=== PATIENT | male | born 1970 | race Caucasian/White ===

== ENCOUNTER → 2017-11-24 | Outpatient (CLI) | payer OTHER ==
[~2017-11-24] MED LIST: ABILIFY 5 MG TAB5 M1 PO; ACETAMINOPHEN-1 EAC1 PO; ADVIL LIQUI-GE200 MG PO; CARISOPRODOL 3350 MG PO; CELEBREX 200 M200 M1 PO; FLEXERIL PO; HYDROCODON-ACE1 EAC7 PO; IBUPROFEN 800800 M1 PO; IBUPROFEN200 M2 PO; KEFLEX500 MG PO; METFORMIN HCL500 MG PO; MOBIC15 MG PO; NAPROSYN500 MG PO; NEURONTIN 300300 M1 PO; NORCO 5-325 TA1 EACH PO; OMEPRAZOLE20 MG PO; PRILOSEC40 MG PO; PROTONIX40 M2 PO; RELAFEN750 MG PO; SLEEP-AID25 M1 PO; TYLENOL PM EX-1 EACH; TYLENOL PM EX-1 EACH PO; ULTRAM 50MG TAB50 MG PO; VOLTAREN GEL 1100 G2 TOP; ZANAFLEX4 MG PO; ZOLOFT; ZOLOFT100 MG PO; [UNRECOGNIZED DRUG - OTHER]
--- NOTE | 2017-12-01 07:32 | PAINCON ---
[address] [address] PAIN MANAGEMENT CONSULTATION Name: LUH PARSONS Room: [facility] Mian#: [id number] Admission: 11/24/17 Attend Phys: Bryson Waters Discharge: Date of : 66 Report #: [id number] THIS REPORT FOR: //name// CC: Hilario Macario DATE OF SERVICE: 11/24/2017 HISTORY OF PRESENT ILLNESS: The patient is a 47-year-old gentleman typically treated for lumbar radiculopathy, DJD, right knee. I took over his care in 09/2016. He had prior seen another health care provider and had had a number of epidural injections, typically a series of 3 twice a year. I have tried to use epidural injections with great restraint, last injection was in August (08/25/2017). The patient has a learning disability. He lives with his mother. She is his primary fence gate assembler. We had talked at length at last visit about trying to stretch out the time between epidural injections. He does have ongoing right lumbar radicular pain, bilateral neural foraminal narrowing at L5-S1 with recurrent radicular symptoms. Some DJD in the right knee. He is followed up with his orthopedic surgeon, Dr. Nieves, who has recommended Celebrex and conservative therapy. He tried Voltaren gel, which was not very efficacious. Dr. Nieves did give him a compound cream, which seems to be helping with the knee. He returns to the pain clinic today noting that the last injection afforded greater than 80% relief for a number of months, though pain is beginning to recur. Rates pain at 8 on a VAS. He did fall at "[employer]" remote control car show. He was with his mother. He said he slipped on some water that had spilled. Physical exam does show no ballottable edema in the right knee. In fact, the right knee does appear to be intact. Ongoing radicular pain with paresthesia down to the right leg. Positive straight leg raising on right with slight decreased right hip flexion, lower extremity extension strength. Again, we did review the aforementioned MRI showing bilateral lumbar spondylosis at L5-S1 with 8 mm anterolisthesis, compression of the bilateral L5 nerve roots bilaterally. PHYSICAL EXAMINATION: GENERAL: Shows a 6 feet 1 inch, 186 pounds gentleman, BMI is 24.7 kilograms per meter squared. VITAL SIGNS: Blood pressure 110/76, pulse 82, respirations 16. MUSCULOSKELETAL: Rises from chair using armrest, modestly antalgic gait favoring the right leg. Again, no ballottable edema in the right knee. Ligaments are intact. Positive straight leg raise on the right, [place] [address] PAIN MANAGEMENT CONSULTATION Name: LUH PARSONS Room: [facility] Mian#: [id number] Admission: 11/24/17 Attend Phys: Bryson Waters Discharge: Date of : 66 Report #: [id number] hip flexion, lower extremity extension strength. Diffuse tenderness across the low back. No discrete trigger points are noted. The patient denies myelopathic symptoms. ASSESSMENT: Symptomatic lumbar radiculopathy by clinical exam and history, positive neural tensioning symptoms, history of good relief following epidural injections typically at L4-L5. RECOMMENDATIONS: 1. Continue nonsteroidal anti-inflammatory medication. Continue range of motion activity. The patient has been riding a bicycle for physical therapy. Strongly encouraged helmet wearing with the bicycle. 2. We will seek authorization for epidural injection under fluoroscopy. <ELECTRONICALLY SIGNED> By: Pavel Macario DO 12/01/17 0732 1224 2126Pavel Macario DO /nt
== END ==
LOC: M.PC 01:35
DX: M54.16 Radiculopathy, lumbar region (principal); M17.11 Unilateral primary osteoarthritis, right knee

== ENCOUNTER → 2017-12-01 | Outpatient (CLI) | payer OTHER ==
--- NOTE | 2017-12-06 07:49 | PAINCON ---
[address] [address] PAIN MANAGEMENT CONSULTATION Name: LUH PARSONS [id number] Admission: 12/01/17 Attend Phys: Bryson Waters Discharge: Date of : 66 Report #: [id number] THIS REPORT FOR: //name// CC: Hilario Macario The patient is a 47-year-old gentleman long known to pain clinic for symptomatic lumbar radiculopathy, last seen in the pain clinic last week, diagnosed with recurrent lumbar radiculopathy. We sought authorization for repeat epidural injection under fluoroscopy. The patient notes pain continues in mid back, bilateral legs. We elected to repeat epidural injection under fluoroscopy today. ASSESSMENT: Symptomatic lumbar radiculopathy. PROCEDURE: Lumbar epidural injection under fluoroscopy. PROCEDURE NOTE: After both written and informed consent to include risk of spinal cord damage, increased pain, weakness and dural puncture, the patient was taken to the fluoroscopy suite, placed in the prone position. After sterile prep and drape, a skin wheal with lidocaine was raised. A 22-gauge epidural Tuohy needle was inserted in the midline at L3-L4 with good loss to resistance. Negative aspiration for cerebrospinal fluid or blood was noted. Then 1 mL of Omnipaque under biplanar fluoroscopy showed good spread within the epidural space. This was followed with 80 mg of triamcinolone plus 1 mL of 1.5% preservative-free Xylocaine, 0.5 mL Xylocaine was then injected to flush the needle; it was removed. The patient was monitored for an appropriate period of time and discharged in good and stable condition. <ELECTRONICALLY SIGNED> By: Pavel Macario DO 12/06/17 0749 1214 1301Pavel Macario DO /nt
== END ==
LOC: M.PC 01:44
DX: M54.16 Radiculopathy, lumbar region (principal)

== ENCOUNTER → 2018-05-26 | Outpatient (CLI) | payer OTHER ==
--- NOTE | 2018-06-08 16:41 | PAINCON ---
[address] [address] PAIN MANAGEMENT CONSULTATION Name: LUH PARSONS Room: [facility] KEYLA Pappas#: [id number] Admission: 05/26/18 Attend Phys: Tiffany Calhoun MD Discharge: Date of : 66 Report #: [id number] THIS REPORT FOR: //name// CC: Hilario Calhoun DATE OF SERVICE: 05/26/2018 FOLLOWUP HISTORY: The patient is a 48-year-old gentleman who has been followed in the pain clinic by Dr. Luh Macario. This is my first time visiting with the patient. He has a history of pain and discomfort involving his low back area. He has undergone epidural steroid injections. He has gleaned benefit from epidural steroid injections in the past. He has had no complications from their use. He rates his pain as a 6-7. Does take Voltaren gel, uses meloxicam, Tylenol and pain creams p.r.n. to help with his pain. Pain is worse with activity, walking, sitting, standing. He finds that medications could be helpful. He has a history of degenerative joint disease. It involves his right knee as well. He denies any new trauma. At this juncture. Gleaned greater than 50% relief after epidural steroid injections. He does have an MRI, which showed multilevel degenerative disk problems in his back. He has bilateral spondylosis at L5 with spondylolisthesis of L5 on S1 causing [id number] bilateral neural foraminal stenosis at that level. His mother states that his pain has risen to the level again that he is complaining quite a bit. He feels that it is reasonable for him to undergo another epidural steroid injection. The patient has been counseled on the possibility of a spinal cord stimulator by Dr. Macario. Unfortunately, Dr. Macario was not sure that the patient's level of psychological maturity would phu well for him to use that device. ALLERGIES: RITALIN, DILANTIN, FENTANYL, GABAPENTIN. CURRENT MEDICATIONS: Extra strength Tylenol, Celebrex 200 mg, Voltaren gel b.i.d., meloxicam 15 mg, Protonix 40 mg, Zoloft 100 mg. PAST MEDICAL HISTORY: 1. Lumbar radiculopathy, bilateral spondylolysis of L5 with spondylolisthesis of L5 on S1. 2. Psychologically developmentally delayed. PAST SURGICAL HISTORY: Tonsillectomy. SOCIAL HISTORY: The patient lives with his mother. LABORATORY DATA: No new laboratory values are available. MRI dated 05/16/2012 reveals bilateral spondylolysis at L5 and grade 1 spondylolisthesis at L5-S1. There is unchanged, moderately severe bilateral neural foraminal stenosis at L5-S1. Has been improvement in a small posterior central disk protrusion and [facility] [address] [place] [address] PAIN MANAGEMENT CONSULTATION Name: LUH PARSONS Room: [facility] KEYLA Pappas#: [id number] Admission: 05/26/18 Attend Phys: Tiffany Calhoun MD Discharge: Date of : 66 Report #: [id number] annular tear at L4-L5. PAIN CLINIC ASSESSMENT: 1. History of osteoarthritic changes in the lower portion of the patient's back. 2. Height 6 feet 1 inch. Weight 181 pounds, BMI is 24. 3. Vital signs: Blood pressure 144/78, heart rate 85, respiratory rate 16, room air saturation is 95%, temperature 98.1. 4. Pain score 6-7/10. 5. Fall risk. The patient has not fallen in the last 3 months. 6. Blood thinner. The patient is not on a blood thinning medication. 7. Hypertension. The patient is not being treated for hypertension. 8. Opioid therapy. The patient is not on opioid regimen. 9. Risk assessment tool. 10. Functional assessment tool. 11. Recreational drug use. The patient denies use of recreational drugs. 12. Tobacco: The patient does not smoke. 13. Alcohol: The patient denies use of alcoholic beverages. PHYSICAL EXAMINATION: GENERAL: The patient is a well-developed, well-nourished white male. Appears his stated age. He is alert and oriented x 3. His affect is appropriate. He is somewhat developmentally delayed. Interaction about that of a 9th, 10th or eleventh greater. HEENT: Normocephalic, atraumatic. Extraocular eye muscles intact. Sclerae nonicteric. Mucous membranes are moist. NECK: Without adenopathy or JVD. HEART: Regular rate. S1, S2. CHEST: Clear to auscultation without rhonchi or rales. ABDOMEN: Nontender. EXTREMITIES: Upper extremity muscle strength is judged to be 5/5 for the major muscle groups. Lower extremity, the patient has pain and discomfort in the L5-S1 dermatomal distribution with pain radiating down into his lumbar area, more problematic in the right area at this juncture. Positive straight leg raise. IMPRESSION: 1. Lumbar radiculopathy with lumbar radicular symptoms. 2. Bilateral spondylolysis of L5 with spondylolisthesis of L5 on S1. 3. Psychologically developmentally delayed. RECOMMENDATIONS: We discussed treatment options with the patient and his mother. He will return to the pain clinic in the near future and undergo an epidural steroid injection. Risks and benefits of the procedure were discussed. The patient and his mother expressed that they had this procedure in the past and had no real concerns at this juncture. He will [place] [address] PAIN MANAGEMENT CONSULTATION Name: LUH PARSONS Carlene Room: [facility]#: [id number] Admission: 05/26/18 Attend Phys: Tiffany Calhoun MD Discharge: Date of : 66 Report #: [id number] then undergo an epidural steroid injection to help quell the pain and discomfort, which he is experiencing. We would like to thank you for letting us participate in his care. We hope he continues to improve. <ELECTRONICALLY SIGNED> By: Tiffany Calhoun MD 06/08/18 1641 1616 2154N. Benny Calhoun MD /nt
== END ==
LOC: M.PC 05-24 11:20
DX: M47.26 Other spondylosis with radiculopathy, lumbar region (principal); M43.17 Spondylolisthesis, lumbosacral region

== ENCOUNTER → 2018-06-02 | Outpatient (CLI) | payer OTHER ==
--- NOTE | 2018-06-08 16:41 | PAINCON ---
[address] [address] PAIN MANAGEMENT CONSULTATION Name: LUH PARSONS [id number] Admission: 06/02/18 Attend Phys: Tiffany Calhoun MD Discharge: Date of : 66 Report #: [id number] THIS REPORT FOR: //name// CC: Hilario Calhoun DATE OF SERVICE: 06/02/2018 PRIMARY CARE PHYSICIAN: Hilario Lainez MD FOLLOWUP COMPLAINT: Back and leg pain. HISTORY OF PRESENT ILLNESS: The patient is a 48-year-old gentleman who has been seen in the Pain Clinic and followed by Dr. Luh Macario. This is my first visit with the patient. He has a history of lumbar radiculopathy. He has undergone epidural steroid injections in the past and gleaned benefits from these. He was seen at the last visit. He has returned today in follow up with a desire to undergo a lumbar epidural steroid injection. He is having pain that is radiating down his back and into the right leg in the L4-L5 distribution. Injections in this area had been helpful in the past. His mother is present and corroborates his story. The patient has not had trauma. He reports that after each injection he notes bilateral improvement in his low back pain. ALLERGIES: METHYLPHENIDATE (RITALIN), DILANTIN, FENTANYL, GABAPENTIN. CURRENT MEDICATIONS: Tylenol Extra Strength, Celebrex 200 mg, Voltaren b.i.d. gel, Meloxicam 15 mg, Protonix 40 mg, Zoloft 100 mg. PAIN CLINIC ASSESSMENT: 1. The patient is not being followed for osteoarthritis or rheumatoid arthritis. 2. Height 6 feet 1 inch, weight 181 pounds, BMI is 24. 3. Vital signs: Blood pressure 144/78, heart rate 85, respiratory rate 16, room air saturation 95%, temperature 98.1. 4. Pain 6-10. 5. Fall risk. The patient has not fallen in the last 3 months. 6. Blood thinner. The patient is not on a blood thinning medication. 7. Hypertension. The patient is not being treated for hypertension. 8. Opioid therapy. The patient is not on an opioid regimen. 9. Risk assessment tool. 10. Functional assessment tool. 11. Recreational drug use. The patient denies use of recreational drugs. 12. Tobacco: The patient does not smoke. 13. Alcohol: The patient denies use of alcoholic beverages. PHYSICAL EXAMINATION: [place] [address] PAIN MANAGEMENT CONSULTATION Name: LUH PARSONS Carlene Room: [facility]#: [id number] Admission: 06/02/18 Attend Phys: Tiffany Calhoun MD Discharge: Date of : 66 Report #: [id number] GENERAL: The patient is a well-developed white male, appears his stated age. He is alert and oriented x 3. His mental status is somewhat diminished. Seems to be of approximately that of a 9th, 10th, or 11th grader. HEENT: Normocephalic, atraumatic. Extraocular eye muscles intact. Sclerae nonicteric. Mucous membranes are moist. CHEST: Clear to auscultation. HEART: Regular rate. ABDOMEN: Nontender. EXTREMITIES: Upper extremity muscle strength is judged to be 5/5 for the major muscle groups without neurologic deficits. The patient without significant scoliosis, kyphosis or lordosis. Low back pain, the patient's pain is radiating down the buttocks area and to the right anterior portion of his leg in the L4-L5 distribution. Muscle strength is judged to be 5/5 on the left leg. Approximately 5-/5 on the right leg secondary to pain. Edgar sign is negative. IMPRESSION: Lumbar radicular pain involving the L4-L5 distribution today. PAST MEDICAL HISTORY: Stomach problems, GERD, emotional problems. RECOMMENDATIONS: We discussed treatment options with the patient. We have discussed this with him and his mother in the last visit. Possible complications of the procedure were again reviewed. They include but are not limited to infection, increased muscle soreness, headache, bleeding, paralysis, worsening of pain, spinal headache. He elects to proceed. PROCEDURE NOTE: The patient was taken to the procedure area. He was assisted in getting on the examination table. His back was sterilely prepped with a chlorhexidine solution. Fluoroscopy using anterior, posterior as well as lateral visualization were performed. After appropriate placement, the L4-L5 area was sterilely prepped. A 17-gauge Tuohy with loss of resistance technique using a midline approach was performed. A total of 80 mg Depo-Medrol, 40 mg triamcinolone and 2 mL of 0.25% bupivacaine was injected. The patient tolerated the procedure well. There were no complications. He remained in the Pain Clinic for an appropriate amount of time. He will follow up in the future as needed. We would like to thank you for letting us participate in his care. We hope he continues to improve. <ELECTRONICALLY SIGNED> By: Tiffany Calhoun MD 06/08/18 1641 1601 0217N. Benny Calhoun MD /PMT
== END | disposition home or self-care (01) ==
LOC: M.PC 03:24
DX: M54.16 Radiculopathy, lumbar region (principal); Z88.8 Allergy status to other drugs, medicaments and biological substances; Z79.899 Other long term (current) drug therapy; I10 Essential (primary) hypertension; K21.9 Gastro-esophageal reflux disease without esophagitis

== ENCOUNTER → 2018-07-14 | Outpatient (CLI) | payer OTHER ==
--- NOTE | 2018-08-24 15:56 | PAINCON ---
[address] [address] PAIN MANAGEMENT CONSULTATION Name: LUH PARSONS Room: [facility] Mian#: [id number] Admission: 07/14/18 Attend Phys: Tiffany Calhoun MD Discharge: Date of : 66 Report #: [id number] THIS REPORT FOR: //name// CC: Hilario Calhoun DATE OF SERVICE: 07/14/2018 CHIEF COMPLAINT: Low back pain. This is radiating down into the right leg to the knee. FOLLOWUP HISTORY: The patient is a 48-year-old gentleman who has been seen in the pain clinic. He has a history of lumbar radiculopathy. He has undergone epidural steroid injections in the past and gleaned benefit from those. He has returned today indicating that his pain has returned. He is having pain and discomfort that radiates down into his right leg to the level of knee. He rates his pain as a 7/10 at this juncture. Denies any new bowel or bladder dysfunction. The patient continues to be helpful to those around him. He has helped some move items which were probably more/heavier than he should have. He has returned today for an injection. He did note improvement in his back and leg pain as a result of the last injection without any untoward complications. ALLERGIES: RITALIN, DILAUDID, FENTANYL, GABAPENTIN. CURRENT MEDICATIONS: Extra strength Tylenol, Celebrex 200 mg, Voltaren gel 1%, Meloxicam 15 mg, Protonix 40 mg, Zoloft 100 mg, PAIN CLINIC ASSESSMENT/PQRS: 1. The patient is not being treated for osteoarthritis or rheumatoid arthritis. 2. Height 6 feet 1 inch, weight 183. BMI is 24. 3. Vital Signs: Blood pressure 120/73, heart rate 71, respiratory rate 16, room air saturation is 97%, temperature 97.6. 4. Pain intensity 7/10. 5. Fall risk. The patient has not fallen in the last 3 months. 6. Blood thinner. The patient is not on a blood thinning medication. 7. Hypertension. The patient is not being treated for hypertension. 8. Opioid therapy greater than 6 weeks. The patient is not on an opioid regimen. 9. Risk assessment tool, low for opioid use. 10. Functional assessment tool. 11. Recreational drug use. The patient denies recreational drugs. 12. Tobacco: The patient has not smoked. 13. Alcohol: The patient denies use of alcoholic beverages. PHYSICAL EXAMINATION: GENERAL: The patient is a well-developed, well-nour[place] [address] PAIN MANAGEMENT CONSULTATION Name: LUH PARSONS Room: [facility]#: [id number] Admission: 07/14/18 Attend Phys: Tiffany Calhoun MD Discharge: Date of : 66 Report #: [id number] his stated age. He is alert and oriented x 3. His mental status is somewhat diminished. He responds had about the level of the ninth, 10th, or eleventh grader. HEENT: Normocephalic, atraumatic. Extraocular eye muscles intact. Sclerae nonicteric. Mucous membranes are moist. CHEST: Clear to auscultation. HEART: Regular rate. S1, S2. ABDOMEN: Nontender. Bowel sounds present. EXTREMITIES: Upper extremity muscle strength judged to be 5/5 for the major muscle groups in the upper extremity. The patient is without scoliosis, kyphosis or lordosis. Low back pain. The patient's pain is radiating down to the buttocks and into the right anterior portion of his leg in the L4-L5 distribution. Muscle strength is judged to be 5/5 for the major muscle groups. The patient notes pain strength of approximately 5-/5 for the right leg. Edgar's sign is negative. IMPRESSION: 1. Lumbar radiculopathy involving the L4-L5 distribution. 2. Stomach problems. 3. Gastroesophageal reflux disease. 4. Emotional problems. RECOMMENDATIONS: We discussed treatment options with the patient and his mother. At this juncture, he and she both feel that another injection would be beneficial. He has gleaned benefits from those in the past. He has had no complications. Continues to have pain and discomfort in the right leg with some weakness and numbness. No change in bowel or bladder function. We reviewed the possible complication with the patient and his mother. They include but are not limited to infection, increased muscle soreness, headache, bleeding, worsening of pain, paralysis and the patient elects to proceed. PROCEDURE NOTE: The patient was taken to the procedure area. He was assisted in getting on the examination table. His back was sterilely prepped with a Betadine solution. Fluoroscopy using anterior, posterior as well as lateral viewing were used. A pillow had been placed under his abdomen to improve positioning. A 25-gauge needle was then advanced into the area of the right L4-L5 dermatomal area. After appropriate placement, a 17-gauge Tuohy with loss of resistance technique using a right paracentral approach was undertaken. A total of 80 mg Depo-Medrol, 40 mg triamcinolone and 2 mL of 0.25% bupivacaine was injected. Total of 8 mL fluoroscopy time was used. The patient tolerated the procedure well. He remained in the pain clinic for an appropriate amount of time. He will follow up in the future as needed. [facility] [address] [place] [address] PAIN MANAGEMENT CONSULTATION Name: LUH PARSONS Room: [facility]#: [id number] Admission: 07/14/18 Attend Phys: Tiffany Calhoun MD Discharge: Date of : 66 Report #: [id number] We would like to thank you for letting us participate in his care. We hope he continues to improve. <ELECTRONICALLY SIGNED> By: Tiffany Calhoun MD 08/24/18 1556 1241 1500N. Benny Calhoun MD /nt
== END | disposition home or self-care (01) ==
LOC: M.PC 04:52
DX: M54.16 Radiculopathy, lumbar region (principal); K21.9 Gastro-esophageal reflux disease without esophagitis; M19.90 Unspecified osteoarthritis, unspecified site; I10 Essential (primary) hypertension; Z98.890 Other specified postprocedural states; Z88.8 Allergy status to other drugs, medicaments and biological substances

== ENCOUNTER 2018-11-06 09:56 | Emergency (ER) | payer OTHER ==
[~2018-11-06] VITALS: Ht 182.9 cm; Wt 83.9 kg
[2018-11-06] MEDS ORDERED: CELEBREX 200 M200 M1 PO (10:13)
[2018-11-06] MEDS ORDERED: JOINT HEALTH T1 EACH PO (10:13)
[2018-11-06] MEDS ORDERED: GLUCOSAMINE HC500 MG PO (10:15)
[2018-11-06] MEDS ORDERED: CENTRUM SILVER1 EAC2 PO (10:15)
[2018-11-06 10:35] LABS: ABSOLUTE LYMPHOCYTES 1.1 thou/uL (0.8-5.3); ABSOLUTE MONOCYTES 0.6 thou/uL (0.0-1.2); BASOPHILS 0.5 %; EOSINOPHILS 0.3 %; HEMOGLOBIN 15.3 gm/dL (14.0-18.0); LYMPHOCYTES 12.9 %; MCH 28.5 pg (26.0-34.0); MCHC 33.9 g/dL (28.0-37.0); MCV 84.1 fL (80.0-100.0); MONOCYTES 6.4 %; MPV 8.5 fl. (7.2-11.1); NUCLEATED RBCS 0 /100WBC; PLATELET COUNT* 214 thou/uL (150-400); POLYS 79.9 %; RBC 5.36 mil/uL (4.50-6.00); RDW-CV 13.4 % (10.5-14.5); WBC 8.8 thou/uL (4.0-11.0)
[2018-11-06 10:41] LABS: URINE BLOOD NEGATIVE (Negative); URINE CLARITY CLEAR; URINE COLOR YELLOW; URINE GLUCOSE-RANDOM NEGATIVE (Negative); URINE KETONES TRACE (Negative); URINE LEUKOCYTES-REFLEX NEGATIVE (Negative); URINE NITRITE-REFLEX NEGATIVE (Negative); URINE PROTEIN NEGATIVE (Negative); URINE SPECIFIC GRAVITY 1.025 (1.005-1.030); URINE UROBILINOGEN 0.2 E.U./dl (0.2-1.0)
[2018-11-06 10:44] LABS: ANION GAP 9 mmol/L (7-16); APTT 26.7 Seconds (25.0-31.3); BUN 23 mg/dL (7-18); CALCIUM 9.3 mg/dL (8.5-10.1); CHLORIDE 103 mmol/L (98-107); CO2 26 mmol/L (21-32); CREATININE 1.2 mg/dL (0.6-1.3); GLUCOSE 104 mg/dL (70-99); INR 1.1; POTASSIUM 3.6 mmol/L (3.5-5.1); SODIUM 138 mmol/L (136-145)
[2018-11-06 10:45] LABS: ICTOTEST (BILI CONFIRMATORY) Negative (Negative); URINE BILIRUBIN 1+ (Negative)
[2018-11-06 10:55] LABS: ALBUMIN 4.1 g/dL (3.4-5.0); ALKALINE PHOSPHATASE 114 U/L (46-116); NT-PRO BRAIN NAT PEPTIDE 27 pg/mL (<300); SGOT 20 U/L (15-37); SGPT 31 U/L (30-65); TOTAL BILIRUBIN 0.7 mg/dL (<0.1-1.0); TOTAL PROTEIN 7.5 g/dL (6.4-8.2); TROPONIN-I LEVEL <0.06 ng/mL (<0.06)
[2018-11-06 11:58] VITALS: BP 127/75
--- NOTE | 2018-11-07 10:07 | EKG ---
[place] [address] ELECTROCARDIOGRAM REPORT Name: LUH PARSONS [id number] Admission: 11/06/18 Attend Phys: Discharge: 11/06/18 Date of : 66 Report #: [id number] THIS REPORT FOR: //name// [facility] ED Test Date: 2018-11-06 Test Time: 10:19:14 Pat Name: LUH PARSONS Department: Room: Gender: M [employer] Mechanic: CHRISSY : 1970 Requested By: Jorden Mcintosh Order Number: [id number] MD: Kurt Santos Measurements Intervals Garibaldi Rate: 77 P: 74 SC: 130 QRS: 20 QRSD: 94 T: 56 QT: 391 QTc: 443 Interpretive Statements Sinus rhythm Compared to ECG 05/14/2013 13:35:41 Sinus arrhythmia no longer present Electronically Signed On 11-07-2018 10:07:06 [employer] by Kurt Santos [email or web address] <ELECTRONICALLY SIGNED> By: Kurt Santos MD, [facility] 11/07/18 1007 1019 1019 Kurt Santos MD, FACC /EPI
== END 2018-11-06 11:58 | disposition home or self-care (01) ==
LOC: M.ERS 09:56
PROVIDERS: Family Medicine
DX: R42 Dizziness and giddiness (principal); F32.9 Major depressive disorder, single episode, unspecified; Z88.4 Allergy status to anesthetic agent; Z88.8 Allergy status to other drugs, medicaments and biological substances; Z90.89 Acquired absence of other organs

== ENCOUNTER → 2018-12-29 | Outpatient (CLI) | payer OTHER ==
[~2018-12-29] MED LIST changes: +CENTRUM SILVER1 EAC2 PO; +GLUCOSAMINE HC500 MG PO; +JOINT HEALTH T1 EACH PO; +TRIAMCINOLONE A80 G2 TOP
--- NOTE | ~2018-12-29 | PAINCON ---
[address] [address] PAIN MANAGEMENT CONSULTATION Name: LUH PARSONS Room: [facility] Mian#: [id number] Admission: 12/29/18 Attend Phys: Tiffany Calhoun MD Discharge: Date of : 66 Report #: [id number] THIS REPORT FOR: //name// CC: Hilario Calhoun DATE OF SERVICE: 12/29/2018 CHIEF COMPLAINT: Here for medication renewal. FOLLOWUP HISTORY: The patient is a 48-year-old gentleman who has been followed in the Pain Clinic. He has a history of chronic low back pain. Has been experiencing pain over the last few months that have continues to radiate down into his left leg. Also had an episode of vertigo in October. He went to the Emergency Room. No significant findings were found. He has undergone epidural steroid injections in the past. He has gleaned benefits from those. He rates his pain today as a 6/10. He finds that meloxicam is helpful. Has used Voltaren gel on his upper extremities when he has been having pain and discomfort. Notes that walking, sitting and standing have increased his discomfort. Finds these medications are beneficial. He is experiencing pain that continues to radiate down into his right leg. Denies any bowel or bladder dysfunction. ALLERGIES: RITALIN, DILAUDID, FENTANYL, GABAPENTIN. CURRENT MEDICATIONS: Extra Strength Tylenol, Celebrex 200 mg, Voltaren gel 1%, meloxicam 15 mg, Protonix 40 mg, Zoloft 100 mg. PAIN CLINIC ASSESSMENT AND PQRS: 1. The patient is not being treated for osteoarthritis or rheumatoid arthritis. 2. Height 6 feet 1 inch, weight 182 pounds, BMI is 24.5. 3. Blood pressure 125/83, heart rate 69, respiratory rate 16, room air saturation 96% and temperature 97.8. 4. Pain intensity 6-8/10. 5. Fall history: The patient has not fallen in the last 3 months. 6. Blood thinner. The patient is not on a blood thinning medication. 7. Hypertension. The patient is not being treated for hypertension. 8. Opioids greater than 6 weeks. The patient is not on an opioid medication regimen. 9. Risk assessment tool, low for opioid use. 10. Functional assessment tool. 11. Recreational drug use. The patient denies use of recreational drugs. 12. Tobacco: The patient does not smoke. 13. Alcohol: The patient denies use of alcoholic beverages. PHYSICAL EXAMINATION: [place] [address] PAIN MANAGEMENT CONSULTATION Name: JAQUELINELUH Carlene Room: [facility]#: [id number] Admission: 12/29/18 Attend Phys: Tiffany Calhoun MD Discharge: Date of : 66 Report #: [id number] GENERAL: The patient is a well-developed, well-nourished white male. Appears his stated age. He is alert and oriented x 3. Mental status is somewhat diminished. Seems to be that of a night or 10/11th grade person. His mother is present. HEENT: Normocephalic, atraumatic. Extraocular eye muscles intact. Sclerae nonicteric. Mucous membranes are moist. NECK: Without adenopathy. CHEST: Clear to auscultation. ABDOMEN: Nontender. EXTREMITIES: Upper extremity muscle strength is judged to be 5/5 for the major muscle groups in the upper extremity. The patient without lordosis, kyphosis or scoliosis. Has low back pain. His pain is radiating down the L4-L5 dermatomal distribution. Notes that there is some weakness in the right leg. Slight antalgic movement. Positive straight leg raise. IMPRESSION: 1. Lumbar radiculopathy involving the L4-L5 dermatomal distribution on the right. 2. Stomach problems. 3. Gastroesophageal reflux. 4. Emotional problems. RECOMMENDATIONS: We discussed treatment options with the patient and his mother. At this juncture, he will return to the pain clinic after his insurance company gives the okay. At that time, he will then undergo an epidural steroid injection to help decrease his pain and discomfort. He has gleaned benefit from those treatments in the past. He would like to undergo another one. His mother is in agreement. No scripts are necessary. The patient has a script for meloxicam at this juncture and Voltaren gel. We would like to thank you for letting us participate in his care. He will undergo an epidural steroid injection when he returns to the pain clinic. By: [id number]. Benny Calhoun MD /JOE
== END ==
LOC: M.PC 04:49
DX: M54.16 Radiculopathy, lumbar region (principal); K21.9 Gastro-esophageal reflux disease without esophagitis; K92.9 Disease of digestive system, unspecified; F98.9 Unspecified behavioral and emotional disorders with onset usually occurring in childhood and adolescence; Z79.899 Other long term (current) drug therapy

== ENCOUNTER → 2019-01-05 | Outpatient (CLI) | payer OTHER ==
[~2019-01-05] MED LIST changes: +TRAMADOL 50 MG50 MG PO
--- NOTE | ~2019-01-05 | PAINCON ---
[address] [address] PAIN MANAGEMENT CONSULTATION Name: LUH PARSONS [id number] Admission: 01/05/19 Attend Phys: Tiffany Calhoun MD Discharge: Date of : 66 Report #: [id number] THIS REPORT FOR: //name// CC: Hilario Calhoun DATE OF SERVICE: 01/12/2019 CHIEF COMPLAINT: Here for another epidural injection. The pain is going down into my leg. FOLLOWUP HISTORY: The patient is a 48-year-old gentleman who has been followed in the pain clinic. He has pain and discomfort in the lower portion of his back. He has been experiencing pain that has been running down the posterior portion of his leg. He has undergone epidural steroid injections in the low back area and gleaned benefits from these. Right side is most problematic. He denies any bowel or bladder dysfunction. He has returned today with a desire to undergo an epidural injection to help quell his pain and discomfort. His pain is rated 6-8 at this juncture. Continues to use Meloxicam. ALLERGIES: RITALIN, DILAUDID, FENTANYL, GABAPENTIN. CURRENT MEDICATIONS: Extra strength Tylenol, Celebrex 200 mg, Voltaren gel 1%, Meloxicam 15 mg, Protonix 40 mg, and Zoloft 100 mg. PAIN CLINIC ASSESSMENT/PQRS: 1. The patient is not being treated for rheumatoid arthritis. He is not being treated for osteoarthritis. 2. Height 6 feet 1 inch, weight 182 pounds, BMI 24.9. 3. Vital signs: Blood pressure 106/67, heart rate 88, respiratory rate 16, room air saturation is 97%, temperature 98.2. 4. Pain intensity 6-8/10. 5. Fall history: The patient has not fallen in the last 3 months. 6. Blood thinner. The patient is not on a blood thinning medication. 7. Hypertension. The patient is not being treated for hypertension. 8. Opioids greater than 6 weeks. The patient is not an opioid regimen. 9. Risk functional assessment tool, low for opioid use. 10. Functional assessment tool. 11. Recreational drug use. The patient denies use of recreational drugs. 12. Tobacco: The patient denies use of tobacco. 13. Alcohol: The patient denies use of alcoholic beverages. PHYSICAL EXAMINATION: GENERAL: The patient is a very pleasant 48-year-old gentleman who has been followed in the pain clinic because of lumbar radiculopathy. He is alert and oriented. His mother is present. His mental status about a 10th, 11th [place] [address] PAIN MANAGEMENT CONSULTATION Name: LUH PARSONS Room: [facility]#: [id number] Admission: 01/05/19 Attend Phys: Tiffany Calhoun MD Discharge: Date of : 66 Report #: [id number]. HEENT: Normocephalic, atraumatic. Extraocular muscles intact. Sclerae nonicteric. Mucous membranes are moist. NECK: Without adenopathy or JVD. CHEST: Clear to auscultation. ABDOMEN: Nontender. Bowel sounds present. HEART: Regular rate. EXTREMITIES: Upper extremity muscle strength judged to be 5/5 for the major muscle groups in the upper extremity. The patient has pain and discomfort in lower portion of his back with pain radiating down the L4-L5 dermatomal distribution on the right. Has a positive straight leg raise on the right. Slight antalgic gait with complaint of pain down to the right L4-L5 dermatomal distribution. IMPRESSION: 1. Lumbar radiculopathy involving L4-L5 dermatomal distribution on the right. 2. Stomach problems. 3. Gastroesophageal reflux. 4. Emotional problems. RECOMMENDATIONS: We discussed treatment options with the patient and his mother. Risks and benefits of the procedure, which could include but are not limited to infection, worsening of pain, no improvement in pain, nerve damage, increased muscle soreness or spinal headache. The patient elects to proceed. PROCEDURE NOTE: The patient was taken to the procedure area. He was assisted in getting on the examination table. His back was sterilely prepped with a Betadine solution. A pillow had been placed under his abdomen to bolster and improve positioning. Fluoroscopy using anterior posteriorly as well as lateral viewing were implemented. The patient's back was sterilely prepped with a Betadine solution. At the right L4-L5 area of 0.25% bupivacaine was infiltrated using a 25-gauge needle. A 17-gauge Tuohy was then advanced in this area after it had been anesthetized. A 0.25% bupivacaine was infiltrated as well. Aspiration was negative. A total of 80 mg Depo-Medrol, 40 mg triamcinolone and 2 mL of 0.25% bupivacaine was injected. The patient tolerated the procedure well. There were no complications. Approximately 5 seconds fluoroscopy time was used. The patient was then taken to the recovery room where he remained for an appropriate amount of time. He will follow up in the future as needed. We would like to thank you for letting us participate in his care. We hope he continues to improve. By: [id number]. Benny Calhoun MD /nt
== END | disposition home or self-care (01) ==
LOC: M.PC 00:45
DX: M54.16 Radiculopathy, lumbar region (principal); G89.29 Other chronic pain; K21.9 Gastro-esophageal reflux disease without esophagitis; K92.9 Disease of digestive system, unspecified; F98.9 Unspecified behavioral and emotional disorders with onset usually occurring in childhood and adolescence; Z88.8 Allergy status to other drugs, medicaments and biological substances; Z98.890 Other specified postprocedural states; Z79.899 Other long term (current) drug therapy

== ENCOUNTER 2019-04-01 23:17 | Emergency (ER) | payer OTHER ==
[~2019-04-01] VITALS: Ht 172.7 cm; Wt 72.6 kg
[2019-04-01] MEDS ORDERED: MUSCLE (23:38)
[2019-04-02 00:20] LABS: ABSOLUTE LYMPHOCYTES 1.2 thou/uL (0.8-5.3); MPV 8.4 fl. (7.2-11.1); PLATELET COUNT* 187 thou/uL (150-400)
[2019-04-02 00:22] LABS: ABSOLUTE EOSINOPHILS 0.1 thou/uL (0.0-0.7); ABSOLUTE MONOCYTES 0.5 thou/uL (0.0-1.2); ABSOLUTE NEUTROPHILS 6.5 thou/uL (1.6-8.1); BASOPHILS 0.5 %; HEMATOCRIT 39.4 % (42.0-52.0); HEMOGLOBIN 13.5 gm/dL (14.0-18.0); LYMPHOCYTES 14.7 %; MCH 28.3 pg (26.0-34.0); MCHC 34.3 g/dL (28.0-37.0); MCV 82.4 fL (80.0-100.0); NUCLEATED RBCS 0 /100WBC; POLYS 77.8 %; RBC 4.78 mil/uL (4.50-6.00); RDW-CV 13.7 % (10.5-14.5); WBC 8.3 thou/uL (4.0-11.0)
[2019-04-02 00:28] LABS: CALCIUM 9.2 mg/dL (8.5-10.1); CREATININE 1.1 mg/dL (0.6-1.3); POTASSIUM 4.2 mmol/L (3.5-5.1)
[2019-04-02 00:33] LABS: ALBUMIN 3.8 g/dL (3.4-5.0); TOTAL BILIRUBIN 0.4 mg/dL (<0.1-1.0); TOTAL PROTEIN 6.8 g/dL (6.4-8.2)
[2019-04-02] MEDS ORDERED: BACTRIM DS TAB1 EACH PO (01:18)
[2019-04-02 01:43] VITALS: BP 135/89
== END 2019-04-02 01:44 | disposition home or self-care (01) ==
LOC: M.ERS 23:17
PROVIDERS: Family Medicine
DX: K61.1 Rectal abscess (principal); Z88.4 Allergy status to anesthetic agent; Z88.8 Allergy status to other drugs, medicaments and biological substances; F32.9 Major depressive disorder, single episode, unspecified; Z90.89 Acquired absence of other organs

== ENCOUNTER → 2019-05-11 | Outpatient (CLI) | payer OTHER ==
[~2019-05-11] MED LIST changes: +BACTRIM DS TAB1 EACH PO; +MUSCLE
--- NOTE | ~2019-05-11 | PAINCON ---
[address] [address] PAIN MANAGEMENT CONSULTATION Name: LUH PARSONS Room: [facility] Mian#: [id number] Admission: 05/11/19 Attend Phys: Tiffany Calhoun MD Discharge: Date of : 66 Report #: [id number] THIS REPORT FOR: //name// CC: Curtis Calhoun DATE OF SERVICE: 05/11/2019 CHIEF COMPLAINT: Back and leg pain. The patient has been found to have a perirectal abscess. HISTORY: The patient is a very pleasant 49-year-old gentleman who has been followed in the pain clinic because of chronic pain. He has had pain in the lower portion of his back, which radiates down into his legs. He has had numerous injections in the past because of the pain. He generally receives good pain relief. He has noticed a recurrence of his pain and discomfort. He would like to undergo an epidural steroid injection at this point to help with the pain. He has a perirectal abscess at this point. He is being treated for this. We have spoken with the patient and his mother. We have discussed the risk and benefits of an epidural steroid injection while he has an abscess. This could be problematic. We would recommend that the patient receive treatment and resolution of the perirectal abscess. After that, he can return to the pain clinic and we will consider an epidural steroid. He rates his pain as an 8/10 at this juncture. His mother is present. We discussed the possible treatment options. Hopefully, the patient will be able to undergo treatment as an outpatient. He does not want to stay overnight in the hospital. ALLERGIES: RITALIN, DILAUDID, FENTANYL, GABAPENTIN. CURRENT MEDICATIONS: Extra strength Tylenol, Celebrex 200 mg, Voltaren gel 1%, Meloxicam 15 mg, Protonix 40 mg, tramadol 50 mg 1 p.o. PAIN CLINIC ASSESSMENT/PQRS: 1. The patient is not being treated for rheumatoid arthritis. He is not being treated for osteoarthritis. 2. Height 6 feet 1 inch, weight is 182 pounds, BMI is 24. 3. VITAL SIGNS: Blood pressure 112/76, heart rate 69, respiratory rate 16, room air saturation 98%, temperature 98.4. 4. Pain intensity is 8/10 5. Fall history: The patient has not fallen in the last 3 months. 6. Blood thinner. The patient is not on a blood thinning medication. 7. Hypertension. The patient is not being treated for hypertension. 8. Opioids greater than 6 weeks. The patient is not on opioid regimen, but does use tramadol p.r.n. as needed [place] [address] PAIN MANAGEMENT CONSULTATION Name: LUH PARSONS Room: [facility]#: [id number] Admission: 05/11/19 Attend Phys: Tiffany Calhoun MD Discharge: Date of : 66 Report #: [id number] 9. Risk assessment tool, low for opioid use. 10. Functional assessment tool. 11. Recreational drug use. The patient denies use of recreational drugs. 12. Tobacco: The patient denies use of tobacco. 13. Alcohol: The patient denies use of alcoholic beverages. PHYSICAL EXAMINATION: GENERAL: The patient is a well-developed, well-nourished white male. He is alert. He has complained of pain and discomfort in his back with pain that is radiating down his leg. He also has his mother present. His mental status is that of about a 10th or 11th grade student. HEENT: Normocephalic, atraumatic. Extraocular eye muscles intact. Sclerae nonicteric. Mucous membranes are moist. NECK: Without adenopathy or JVD. CHEST: Clear to auscultation. ABDOMEN: Nontender. Bowel sounds are present. HEART: Regular rate. EXTREMITIES: Upper extremity muscle strength judged to be 5/5 for the major muscle groups in the upper extremities. The patient has pain and discomfort in the lower portion of his back. Pain is radiating down the L4-L5 dermatomal distribution. Also, has a positive straight leg raise on the right. Slight antalgic gait. The patient does have a complaint of pain and discomfort in the rectal area. He has been diagnosed with a perirectal abscess. IMPRESSION: 1. Perirectal abscess. 2. Lumbar radiculopathy involving the L4-L5 dermatomal distribution on the right. 3. Stomach problems. 4. Gastroesophageal reflux. 5. Emotional problems. RECOMMENDATIONS: We discussed treatment options with the patient and his mother. At this point, he needs to have the perirectal abscess attended to. After this has been deemed resolved, we could consider pursuing an epidural steroid injection. We explained to the patient and his mother in the most basic details the complications that could occur as a result of steroid use and the patient with perirectal abscess. This may exacerbate that condition. May increase the possibility of sepsis. The patient has some apprehension about having a perirectal abscess treated. He does not want to stay in the hospital. We have explained that some patients are able to go home after surgery. Hopefully, he would be a candidate for outpatient surgery. Once the perirectal abscess area has been attended to, we would then proceed with an epidural steroid injection. The patient has used tramadol and found this beneficial. A script for tramadol 50 mg 1 p.o. t.i.d. had been provided with 3 [place] [address] PAIN MANAGEMENT CONSULTATION Name: CHANTALLUH ISSA Room: [facility]#: [id number] Admission: 05/11/19 Attend Phys: Tiffany Calhoun MD Discharge: Date of : 66 Report #: [id number] We would like to thank you for letting us participate in his care. We hope he continues to improve. By: [id number]. Benny Calhoun MD /nt
== END ==
LOC: M.PC 05:17
DX: M54.16 Radiculopathy, lumbar region (principal); K21.9 Gastro-esophageal reflux disease without esophagitis; K61.1 Rectal abscess; M79.606 Pain in leg, unspecified; Z88.8 Allergy status to other drugs, medicaments and biological substances; Z79.899 Other long term (current) drug therapy

== ENCOUNTER → 2019-08-31 | Outpatient (CLI) | payer OTHER ==
--- NOTE | 2019-09-12 09:09 | PAINCON ---
[address] [address] PAIN MANAGEMENT CONSULTATION Name: LUH PARSONS [id number] Admission: 08/31/19 Attend Phys: Tiffany Calhoun MD Discharge: Date of : 66 Report #: [id number] THIS REPORT FOR: //name// CC: Curtis Calhoun DATE OF SERVICE: 08/31/2019 CHIEF COMPLAINT: Lumbar radicular pain with pain radiating down into the leg. HISTORY: The patient is a 49-year-old gentleman who has been followed in the pain clinic because of chronic pain. He has had lumbar radicular pain in the past. He returns today indicating that his pain has reoccurred. It involves the low back area and radiates down into the left side of his leg. Epidural steroid injections in the past were quite remarkable. He has noted improvement after these. He has returned today with the desire to undergo an injection. He has noted that because of the increased pain, he has found it difficult to walk for any significant amount of time. He rates his pain as 7-8. His mother is present and helps corroborate his history. He would like to proceed with an injection. He feels that the tramadol medication, Celebrex and meloxicam are beneficial. Prolonged sitting and standing can be problematic. He does like to remain active. ALLERGIES: RITALIN, DILAUDID, FENTANYL, GABAPENTIN. CURRENT MEDICATIONS: Extra Strength Tylenol, Celebrex 200 mg, Voltaren gel 1%, meloxicam 15 mg, Protonix 40 mg, tramadol 50 mg. PAIN CLINIC ASSESSMENT AND PQRS: 1. The patient is not being treated for rheumatoid arthritis. The patient is not being treated for osteoarthritis. 2. Height 6 feet 1 inch, weight 183 pounds, BMI is 24.3. 3. Vital signs: Blood pressure 126/81, heart rate 64, respiratory rate is 18, room air saturation was 94%, temperature 98.0. 4. Pain intensity 04/19. 5. Fall history: The patient has not fallen in the last 3 months. 6. Blood thinner. The patient is not on a blood thinning medication. 7. Hypertension. The patient is not being treated for hypertension. 8. Opioids greater than 6 weeks, the patient is not receiving opioid regimen, but has used tramadol p.r.n. 9. Risk assessment tool, low for opioid use. 10. Functional assessment tool, reviewed. 11. Recreational drug use. The patient denies use of recreational drugs. 12. Tobacco. The patient denies use of tobacco. 13. Alcohol. The patient denies use of [place] [address] PAIN MANAGEMENT CONSULTATION Name: LUH PARSONS Room: [facility]#: [id number] Admission: 08/31/19 Attend Phys: Tiffany Calhoun MD Discharge: Date of : 66 Report #: [id number] PHYSICAL EXAMINATION: GENERAL: The patient is a well-developed, well-nourished white male. He is alert and oriented x 3. His affect is appropriate. Speech is fluent. HEENT: Normocephalic, atraumatic. Extraocular eye muscles intact. Sclerae are nonicteric. Mucous membranes are moist. NECK: Without adenopathy or JVD. HEART: Regular rate. EXTREMITIES: Upper extremity muscle strength judged to be 5/5 for the major muscle groups in the upper extremity. Lower extremity muscle strength judged to be 5/5 for the major muscle groups in the lower extremity. The patient has pain that is radiating down into the L5/L4 dermatomal distribution to the left as well as right. The patient has positive straight leg raise on the left. IMPRESSION: 1. Lumbar radiculopathy, L4-L5 dermatomal distribution on the right as well as in the left. 2. Stomach problems. 3. Gastroesophageal reflux. 4. Emotional problems. RECOMMENDATIONS: We discussed treatment options with the patient. Risks and benefits of an epidural steroid injection were discussed. They include but are not limited to infection, worsening of pain, no improvement in pain, nerve damage and the patient elects to proceed. PROCEDURE NOTE: The patient was taken to the procedure area. He was then assisted in getting on examination table. His back was sterilely prepped with a Betadine solution. A 0.25% bupivacaine was infiltrated. A 17-gauge Tuohy with loss of resistance technique at the L4-L5 interspace was undertaken. There was no CSF, heme or paresthesia. Fluoroscopy using anterior and posterior viewing were used to confirm appropriate placement. Total of 80 mg DepoMedrol, 40 mg triamcinolone and 2 mL of 0.25% bupivacaine was injected. The patient tolerated the procedure well. There were no complications. He remained in the Pain Clinic for an appropriate amount of time. He will follow up in the future as needed. We would like to thank you for letting us participate in his care. We hope he continues to improve. <ELECTRONICALLY SIGNED> By: Tiffany Calhoun MD 09/12/19 [id number]. Benny Calhoun MD /nt
== END | disposition home or self-care (01) ==
LOC: M.PC 05:09
DX: M54.16 Radiculopathy, lumbar region (principal); G89.29 Other chronic pain; K21.9 Gastro-esophageal reflux disease without esophagitis; Z98.890 Other specified postprocedural states; Z79.899 Other long term (current) drug therapy; Z88.8 Allergy status to other drugs, medicaments and biological substances

== ENCOUNTER → 2019-11-14 | Outpatient (CLI) | payer MEDICARE | LOC: M.ULTRA 08:50 | DX: M76.822 Posterior tibial tendinitis, left leg (principal); M25.572 Pain in left ankle and joints of left foot ==

== ENCOUNTER → 2020-02-29 | Outpatient (CLI) | payer MEDICARE | END | disposition home or self-care (01) | LOC: M.PC 04:13 | DX: M54.16 Radiculopathy, lumbar region (principal); G89.29 Other chronic pain; Z98.890 Other specified postprocedural states; Z79.899 Other long term (current) drug therapy; Z88.8 Allergy status to other drugs, medicaments and biological substances ==

== ENCOUNTER → 2020-06-06 | Outpatient (CLI) | payer MEDICARE ==
[~2020-06-06] MED LIST changes: +MEDROLDOSEPACK PO
--- NOTE | ~2020-06-06 | PAINCON ---
[address] [address] PAIN MANAGEMENT CONSULTATION Name: JAQUELINELUH Carlene Room: [facility].#: [id number] Admission: 06/06/20 Attend Phys: Tiffany Calhoun MD Discharge: Date of : 66 Report #: [id number] THIS REPORT FOR: //name// cc: Curtis Mancini MD, Matthew W. MD ~ THIS REPORT FOR: //name// CC: Hilario Calhoun DATE OF SERVICE: 06/06/2020 CHIEF COMPLAINT: Return of pain down in the low back and both legs. HISTORY: The patient is a 50-year-old gentleman who has been followed in the pain clinic because of chronic pain involving his low back. He has undergone epidural steroid injections in the past and found them helpful. He has noticed over the last few weeks of worsening of pain and discomfort, which involves his calf. He rates the pain as an 8/10. Pain radiates down into the lower portion of his back and down into both legs involving both calf. He is somewhat saddened. He has lost about four of his friends due to COVID-19 infection at this juncture. His desire today is to undergo an epidural steroid injection. ALLERGIES: RITALIN, DILAUDID, FENTANYL, GABAPENTIN. CURRENT MEDICATIONS: Extra Strength Tylenol, Celebrex 200 mg, tramadol 50 mg, Protonix, meloxicam 15 mg, Voltaren gel to the affected area. PAIN CLINIC ASSESSMENT AND PQRS: 1. The patient is not being treated for rheumatoid arthritis. He is not being treated for osteoarthritis. 2. Height 6 feet 1 inch, weight 182 pounds, BMI is 23. 3. Vital Signs: Blood pressure 146/95, heart rate 73, respiratory rate 16, room air saturation 96%, temperature 98.3. 4. Pain intensity is 8-10/10. 5. Fall history: The patient has not fallen in the last 3 months. 6. Blood thinner. The patient is not on a blood thinning medication. 7. Hypertension. The patient is not being treated for hypertension. 8. Opioids greater than 6 weeks. The patient is not on an opioid regimen on a regular basis. He is using Tylenol. 9. Risk assessment tool, low for opioid use. 10. Functional assessment tool. The patient denies use. 11. Tobacco: The patient denies. 12. Alcohol: The patient denies [place] [address] PAIN MANAGEMENT CONSULTATION Name: JAQUELINELUH Carlene Room: [facility]#: [id number] Admission: 06/06/20 Attend Phys: Tiffany Calhoun MD Discharge: Date of : 66 Report #: [id number] PHYSICAL EXAMINATION: GENERAL: The patient is a well-developed, well-nourished white male. Appears his stated age. He is alert and oriented x 3. His affect is appropriate. Speech is fluent. He is accompanied by his mother. His age, appears to be that approximately 14-year-old. NECK: Without adenopathy or JVD. HEART: Regular rate. EXTREMITIES: Upper extremity muscle strength judged to be 5/5 for the major muscle groups in the upper extremity. The patient has pain that radiates down the lower portion of his back in the L4-L5 dermatomal distribution. Has pain into the calf areas left as well as the right. The patient has positive straight leg raise on the left. IMPRESSION: 1. Lumbar radiculopathy, L4-L5 dermatomal distribution as well as on the right side. 2. Stomach problems. 3. Gastroesophageal reflux. 4. Emotional problems. RECOMMENDATIONS: We discussed treatment options with the patient. Risks and benefits of an epidural steroid injection were again discussed with the patient and his mother. He finds that these injections have been helpful. Notes his pain is about 70% improved after injections. He would like to proceed with another one today. We reminded the patient and mother regarding the pandemic infections after an epidural steroid injection might be more problematic given that the steroid medication does decrease one's immunity. They elect to proceed. PROCEDURE NOTE: The patient was taken to the procedure area. He was then assisted in getting on the examination table. His back was sterilely prepped with a Betadine solution. A 0.25% bupivacaine was infiltrated. A 17-gauge Tuohy with loss of resistance technique was used to gain access to the epidural space. There was no CSF, heme or paresthesia at the L4-L5 area. A total of 80 mg Depo-Medrol, 40 mg triamcinolone and 2 mL of 0.25% bupivacaine were injected. A pillow had been placed under the abdomen to bolster and improve positioning. The patient tolerated the procedure well. He will remain in the pain clinic as needed. A script for tramadol 50 mg has been forwarded to his pharmacy. We would like to thank you for letting us participate in his care. We hope he continues to improve. By: [id number]. Benny Calhoun MD /[facility]
== END | disposition home or self-care (01) ==
LOC: M.PC 11:48
PROVIDERS: ATTEND Anesthesiology Pain Medicine
DX: M54.5 Low back pain (principal); M54.16 Radiculopathy, lumbar region; K21.9 Gastro-esophageal reflux disease without esophagitis; Z79.899 Other long term (current) drug therapy; Z88.8 Allergy status to other drugs, medicaments and biological substances; Z88.6 Allergy status to analgesic agent

== ENCOUNTER → 2020-09-12 | Outpatient (CLI) | payer MEDICARE | END | disposition home or self-care (01) | LOC: M.PC 10:38 | PROVIDERS: ATTEND Anesthesiology Pain Medicine | DX: M54.16 Radiculopathy, lumbar region (principal); G89.29 Other chronic pain; K21.9 Gastro-esophageal reflux disease without esophagitis; Z98.890 Other specified postprocedural states; Z79.899 Other long term (current) drug therapy; Z88.8 Allergy status to other drugs, medicaments and biological substances ==

== ENCOUNTER → 2021-01-30 | Outpatient (CLI) | payer MEDICARE | END | disposition home or self-care (01) | LOC: M.PC 09:32 | PROVIDERS: ATTEND Anesthesiology Pain Medicine | DX: M54.16 Radiculopathy, lumbar region (principal); G89.29 Other chronic pain; F32.9 Major depressive disorder, single episode, unspecified; K21.9 Gastro-esophageal reflux disease without esophagitis; Z98.890 Other specified postprocedural states; Z79.899 Other long term (current) drug therapy; Z88.8 Allergy status to other drugs, medicaments and biological substances ==

== ENCOUNTER → 2021-06-05 | Outpatient (CLI) | payer MEDICARE | END | disposition home or self-care (01) | LOC: M.PC 11:15 | PROVIDERS: ATTEND Anesthesiology Pain Medicine | DX: M54.16 Radiculopathy, lumbar region (principal); G89.29 Other chronic pain; F32.9 Major depressive disorder, single episode, unspecified; K21.9 Gastro-esophageal reflux disease without esophagitis; Z98.890 Other specified postprocedural states; Z79.899 Other long term (current) drug therapy; Z88.8 Allergy status to other drugs, medicaments and biological substances ==

== ENCOUNTER → 2021-09-23 | Outpatient (CLI) | payer MEDICARE ==
[~2021-09-23] MED LIST changes: +IBU800 MG PO
== END | disposition home or self-care (01) ==
LOC: M.PC 09:23
PROVIDERS: ATTEND Anesthesiology Pain Medicine
DX: M54.16 Radiculopathy, lumbar region (principal); G89.29 Other chronic pain; K21.9 Gastro-esophageal reflux disease without esophagitis; F32.9 Major depressive disorder, single episode, unspecified; Z98.890 Other specified postprocedural states; Z79.899 Other long term (current) drug therapy; Z88.8 Allergy status to other drugs, medicaments and biological substances

== ENCOUNTER → 2021-10-30 | Outpatient (CLI) | payer MEDICARE ==
[~2021-10-30] MED LIST changes: +APAP W/CODEINE1 TA2 PO
== END ==
LOC: M.PC 10:31
PROVIDERS: ATTEND Anesthesiology Pain Medicine
DX: M54.16 Radiculopathy, lumbar region (principal); K21.9 Gastro-esophageal reflux disease without esophagitis; Z88.8 Allergy status to other drugs, medicaments and biological substances; Z79.899 Other long term (current) drug therapy

== ENCOUNTER → 2021-12-04 | Outpatient (CLI) | payer MEDICARE | END | disposition home or self-care (01) | LOC: M.PC 10:00 | PROVIDERS: ATTEND Anesthesiology Pain Medicine | DX: M54.16 Radiculopathy, lumbar region (principal); G89.29 Other chronic pain; K21.9 Gastro-esophageal reflux disease without esophagitis; F32.9 Major depressive disorder, single episode, unspecified; Z98.890 Other specified postprocedural states; Z79.899 Other long term (current) drug therapy; Z88.8 Allergy status to other drugs, medicaments and biological substances ==